=== PATIENT | female | born 1990 | race Caucasian/White ===

== ENCOUNTER 2017-01-01 16:04 | Inpatient (IN) | payer OTHER ==
[~2017-01-01] VITALS: Ht 160 cm; Wt 62.6 kg
[~2017-01-01 16:04] MED LIST: PERC5TAB12 PO
--- NOTE | 2017-01-03 08:42 | MH ---
cc: JULIUS MARTÍNEZ M.D. DATE OF ADMISSION: 01/04/2017 DATE OF 1990 The patient is scheduled for elective repeat section at term, history of marginal placenta previa. HISTORY The patient is a 26-year-old female 2, para 1, previous section in 2010. The patient last menstrual period was April 17, 2016. Her estimated date confinement is January 22, 2017. She is approximately 38 weeks gestation, scheduled for an elective repeat section. complicated by marginal low lying placenta previa. The patient's obstetrical care is notable for the above-stated abnormal placentation, otherwise, an uncomplicated course. Group B strep culture is negative. She is varicella nonimmune. Past medical history The patient denies any systemic or chronic disease. ALLERGIES She states she has no known drug allergies. MEDICATIONS Current medications include vitamins only. FAMILY HISTORY Noncontributory. PAST SURGICAL HISTORY As stated above. Primary section June of 2011 for breech presentation, delivery of viable healthy female , weighing 6 pounds, 10 ounces. PHYSICAL EXAMINATION GENERAL: The patient is well-appearing, well-nourished female in no distress. VITAL SIGNS: Stable. Blood pressures 108/64. She weighs 145 pounds. DIRECTED EXAMINATION: heart tones were the one 140s. HEENT: Shows no adenopathy or thyromegaly. LUNGS: Lungs were clear in all alfredo. CARDIAC: Cardiac is regular rate and rhythm without murmur, rub or gallop. ABDOMEN: Abdomen is gravid, full-term. EXTREMITIES: Symmetrical, full range of motion, 1+ edema. Deep tendon reflexes are normal, 1+. There is no cyanosis, clubbing or edema. NEUROLOGIC: Exam is grossly intact, nonfocal. ASSESSMENT The patient at 38 weeks gestation with a marginal placenta previa for elective repeat section. Julius Martínez MD [facility]/EO /5:20 PM /8:38 AM
[2017-01-04] VITALS (26 sets, daily range): BP systolic 104–123; BP diastolic 57–76; PULSE 18–94; RESP 14–20; TEMP 97.8–98.3; O2SAT 79–99
[2017-01-04] MEDS ORDERED: ceFAZolin 1,000 MG/NS 100 ML IV SCH ×2 (06:00)
[2017-01-04] MEDS ORDERED: LACTATED RINGER'S 1000 ML IV ONE (06:00)
[2017-01-04] MEDS ORDERED: LACTATED RINGER'S 1000 ML IV SCH (06:00)
[2017-01-04] MEDS ORDERED: CITRIC ACID-SODIUM CITRATE LIQ 30 ML UDC PO SCH (06:00)
[2017-01-04] MEDS ORDERED: LIDOCAINE HCL 1% 50 ML VIAL ONE (06:02)
[2017-01-04] MEDS ORDERED: SE-NTAB3 PO (06:12)
[2017-01-04 06:44] LABS: AUTOMATED NEUTROPHIL # 7.6 TH/MM3 (1.8-7.7); BASOPHIL % 0.3 % (0.0-2.0); EOSINOPHIL % 0.3 % (0.0-4.0); HEMATOCRIT 37.3 % (35.0-46.0); HEMO FLAGS DIFF FINAL; LYMPH % 14.5 % (9.0-44.0); LYMPHOCYTE # 1.4 TH/MM3 (1.0-4.8); MEAN CELL VOLUME 89.8 FL (80.0-100.0); MEAN CORPUSCULAR HEMOGLOBIN 30.2 PG (27.0-34.0); MEAN CORPUSCULAR HGB CONC 33.6 % (32.0-36.0); MONO % 6.5 % (0.0-8.0); NEUT % 78.4 % (16.0-70.0); PLATELET COUNT 134 TH/MM3 (150-450); RED BLOOD COUNT 4.16 MIL/MM3 (4.00-5.30); RED CELL DISTRIBUTION WIDTH 13.7 % (11.6-17.2); WHITE BLOOD COUNT 9.7 TH/MM3 (4.0-11.0)
[2017-01-04] MEDS ORDERED: ONDANSETRON HCL 4 MG/2 ML VIAL ONE (07:16)
[2017-01-04] MEDS ORDERED: ACETAMINOPHEN 1000 MG/100 ML VIAL IV ONE ×2 (07:17→13:30)
[2017-01-04] MEDS ORDERED: OXYTOCIN 10 UNIT/ML AMP ONE (07:17)
[2017-01-04] MEDS ORDERED: MORPHINE SULFATE PF 5 MG/10 ML VIAL ONE (07:17)
[2017-01-04 07:18] LABS: BACTERIA, URINE MOD /hpf; BLOOD, URINE NEG (NEG); COMMENT (UR) CULTURE INDICATED; CULTURE IF INDICATED CULTURE INDICATED; GLUCOSE,URINE NEG (NEG); KETONE, URINE NEG (NEG); MUCUS URINE FEW /lpf (OCC); NITRITE,URINE NEG (NEG); PH, URINE 6.5 (5.0-8.5); SQUAMOUS EPITHELIAL CELL URINE 5 /hpf (0-5); URINE COLOR YELLOW (YELLW/STRAW)
--- NOTE | 2017-01-04 08:20 | PD.OB.DELI ---
Procedure Note Section Procedure Performed by Julius Middleton Procedure: Repeat Low Transverse Sec Indication for delivery: Desired elective repeat Informed consent obtained: For anesthesia, For procedure Confirmed correct: Patient, Procedure, Site, Time-out taken Anesthesia: Spinal Medication prior to procedure: As documented in eMAR Monitoring during procedure: Blood pressure monitoring, ekg monitor tech, doppler, Pulse oximetry Urinary catheter: Inserted using sterile technique, To dependent drainage Sterile preparation: Duraprep, In usual fashion Position: Supine with wedge to right side, Supine with safety belt applied Operative Features Skin Incision: Pfannenstiel Uterine Incision: Low transverse w/knife / scissors Membranes Ruptured: Artificially Presentation: Occiput anterior Delivery of : Assisted (kiwi vacuum x 1 pull) : Female One Minute : 9 Five Minute : 9 Weight: 6/11 Status of infant: Viable, Cord blood, Umbilical cord, Nursery present Placenta delivered: Intact Medications: Antibiotics, Oxytocin Estimated blood loss: 600 Procedure tolerated: Well Maternal Condition: Stable Condition: Stable Julius Middleton MD January 04, 2017 08:20
--- NOTE | 2017-01-04 08:23 | HHI.DS ---
Admission Date January 04, 2017 at 05:22 Admitting Diagnosis Diagnosis: : Repeat : Female Pt Condition on Discharge: Good Discharge Disposition: Discharge Home Discharge Instructions Diet Instructions: As Tolerated, No Restrictions Activities You Can Perform: Shower Only-No Bath Activities to Avoid: Prolonged Standing, Strenuous Activity, Shaving, Driving, Sexual Activity Julius Middleton MD January 04, 2017 08:23
[2017-01-04] MEDS ORDERED: SODIUM CHLORIDE 0.9% FLUSH 10 ML FLUSH IV FLUSH PRN (08:30)
[2017-01-04] MEDS ORDERED: SIMETHICONE 80 MG CHEWABLE TAB PO PRN (08:30)
[2017-01-04] MEDS ORDERED: OXYTOCIN 30 UNITS-500ML PREMIX 500 ML IV ONE (08:30)
[2017-01-04] MEDS ORDERED: KETOROLAC TROMETHAMINE 60 MG/2 ML (IM) VIAL IM PRN (09:00)
[2017-01-04] MEDS ORDERED: SODIUM CHLORIDE 0.9% FLUSH 10 ML FLUSH IV FLUSH SCH (09:00)
[2017-01-04] MEDS ORDERED: EPIDURAL-DIPHENHYDRAMINE HCL 50 MG/ML VIAL IV PUSH PRN (10:30)
[2017-01-04] MEDS ORDERED: EPIDURAL-NALOXONE HCL 0.4 MG/ML AMP IV PRN (10:30)
[2017-01-04] MEDS ORDERED: EPIDURAL-DIPHENHYDRAMINE HCL 50 MG CAP PO PRN (10:30)
[2017-01-04] MEDS ORDERED: EPIDURAL-NO SYSTEMIC NARCOTICS PRN (10:30)
[2017-01-04] MEDS ORDERED: EPIDURAL-DO NOT ADMINISTER ANTICOAGULANTS PRN (10:30)
[2017-01-04] MEDS: ONDANSETRON HCL 4 MG/2 ML VIAL IV PUSH PRN ×2 (12:08→17:43)
[2017-01-04] MEDS ORDERED: LACTATED RINGER'S 1000 ML INJ 1,000 ML IV SCH (13:20)
[2017-01-04] MEDS ORDERED: OXYTOCIN 30 UNITS-500ML PREMIX 500 ML IV PRN (18:30)
[2017-01-05 00:22] VITALS: BP 105/70; PULSE 73; RESP 16; TEMP 98.2
[2017-01-05] MEDS: oxyCODONE/ACETAMINOPHEN 5 MG/325 MG TAB PO PRN ×4 (03:00→21:43)
[2017-01-05 05:08] VITALS: BP 106/73; PULSE 74; RESP 14; TEMP 98.2
[2017-01-05 07:50] LABS: AUTOMATED NEUTROPHIL # 11.8 TH/MM3 (1.8-7.7); BASOPHIL % 0.3 % (0.0-2.0); EOSINOPHIL % 0.2 % (0.0-4.0); HEMATOCRIT 38.2 % (35.0-46.0); HEMO FLAGS DIFF FINAL; LYMPH % 10.2 % (9.0-44.0); LYMPHOCYTE # 1.4 TH/MM3 (1.0-4.8); MEAN CELL VOLUME 89.3 FL (80.0-100.0); MEAN CORPUSCULAR HEMOGLOBIN 30.8 PG (27.0-34.0); MEAN CORPUSCULAR HGB CONC 34.5 % (32.0-36.0); MONO % 4.6 % (0.0-8.0); NEUT % 84.7 % (16.0-70.0); PLATELET COUNT 149 TH/MM3 (150-450); RED BLOOD COUNT 4.27 MIL/MM3 (4.00-5.30); RED CELL DISTRIBUTION WIDTH 13.6 % (11.6-17.2); WHITE BLOOD COUNT 13.9 TH/MM3 (4.0-11.0)
[2017-01-05 08:00] VITALS: BP 108/70; PULSE 68; RESP 16; TEMP 97.9
--- NOTE | 2017-01-05 08:41 | HHI.OB ---
Subjective Post Operative Day: 1 Remarks breast feeding. Pain well controlled with motrin. Mod bleeding. Elmer po, passing flatus Objective Vitals/I&O Vital Signs Date Time Temp Pulse Resp B/P Pulse Ox O2 Delivery O2 Flow Rate FiO2 01/05/17 05:08 74 14 106/73 01/05/17 05:08 98.2 01/05/17 00:22 73 105/70 01/05/17 00:22 98.2 16 01/04/17 20:04 98.2 14 01/04/17 20:04 76 104/60 01/04/17 15:20 98.3 72 18 110/68 01/04/17 12:30 16 01/04/17 11:28 18 01/04/17 10:20 98.0 72 16 01/04/17 10:20 110/66 01/04/17 09:45 115/69 01/04/17 09:40 80 01/04/17 09:40 18 98 01/04/17 09:30 20 98 01/04/17 09:30 76 110/65 01/04/17 09:29 97.8 01/04/17 09:15 70 18 113/60 98 01/04/17 09:15 20 01/04/17 09:00 112/57 01/04/17 09:00 79 20 79 01/04/17 09:00 98 01/04/17 08:45 81 01/04/17 08:45 20 18 99 01/04/17 08:44 119/67 Result Diagram: 01/05/17 0719 Objective Remarks GENERAL: Well-nourished, well-developed patient. CARDIOVASCULAR: Regular rate and rhythm without murmurs, gallops, or rubs. RESPIRATORY: Breath sounds equal bilaterally. No accessory muscle use. ABDOMEN/GI: Abdomen soft, non-tender, bowel sounds present. Incision: Dressing in place Fundus: Firm, non-tender at umbilicus. GENITOURINARY: Light to moderate bleeding. EXTREMITIES: No cyanosis or edema, non-tender, without signs of DVT. Medications and IVs Current Medications Medications (Trade) Dose Ordered Sig/Meg Route Start Time Stop Time Status Last Admin Lactated Ringer's 1,000 ml @ 150 mls/hr Q6H40M IV 01/04/17 06:00 01/04/17 07:11 (Lr 1000 ml Inj) 1,000 ml @ 100 mls/hr Q10H IV 01/04/17 13:20 01/05/17 09:19 (NS Flush) 2 ml BID IV FLUSH 01/04/17 09:00 (NS Flush) 2 ml UNSCH PRN IV FLUSH 01/04/17 08:30 (Mylicon Chew) 80 mg QID PRN PO 01/04/17 08:30 (Motrin) 600 mg Q6H PRN PO 01/04/17 08:30 (Toradol Inj) 30 mg Q6H PRN IM 01/04/17 09:00 01/05/17 08:59 (Percocet 5-325 Mg) 1 tab Q4H PRN PO 01/04/17 08:30 01/05/17 03:00 (Percocet 5-325 Mg) 2 tab Q4H PRN PO 01/04/17 08:30 (Jeana-Colace) 2 tab Q12H PRN PO 01/04/17 08:30 (M-M-R Ii Inj) 0.5 ml ONCE ONCE SQ 01/05/17 16:00 01/05/17 16:01 (Boostrix Inj) 0.5 ml ONCE ONCE IM 01/05/17 16:00 01/05/17 16:01 (Zofran Inj) 4 mg Q6H PRN IV PUSH 01/04/17 08:30 01/04/17 17:43 Miscellaneous Information NO SYSTEMIC NARCOTICS TO BE GIVEN FO... UNSCH PRN .XX 01/04/17 10:30 01/05/17 10:29 (Narcan Inj) 0.4 mg UNSCH PRN IV 01/04/17 10:30 01/05/17 10:29 (Benadryl Inj) 25 mg Q6H PRN IV PUSH 01/04/17 10:30 01/05/17 10:29 (Benadryl) 50 mg Q6H PRN PO 01/04/17 10:30 01/05/17 10:29 Miscellaneous Information ALL NURSING DEPARTMENTS UNSCH PRN .XX 01/04/17 10:30 01/05/17 10:29 Assessment/Plan Problem List: (1) care following delivery Assessment and Plan POD 1 - doing well, cont routine supportive care Dispo home pod 2-3, already has rx for pain Jennifer Fields MD January 05, 2017 08:41
[2017-01-05] MEDS: DOCUSATE SODIUM 50 MG/SENNA 8.6 MG TAB PO PRN ×2 (09:26→21:43)
[2017-01-05] MEDS: IBUPROFEN 600 MG TAB PO PRN ×3 (09:26→21:43)
[2017-01-05] MEDS ORDERED: MEASLES, MUMPS, RUBELLA VACCINE 0.5 ML VIAL SQ ONE (16:00)
[2017-01-05] MEDS ORDERED: DIPHTH/TETANUS/ACEL PERTUSSIS (BOOSTER) 0.5 ML VIAL/PFS IM ONE (16:00)
--- NOTE | 2017-01-05 16:04 | MP ---
cc: JULIUS MARTÍNEZ M.D. DATE OF SURGERY: 01/04/2017. PREOPERATIVE DIAGNOSIS: 1. Term anterior . 2. History of previous section and marginal low lying placenta previa POSTOPERATIVE DIAGNOSIS: 1. Term anterior . 2. History of previous section and marginal low lying placenta previa OPERATIVE PROCEDURE PERFORMED: Repeat low transverse section and delivery of a viable female infant. SURGEON: Julius Martínez MD. ANESTHESIA: Spinal ESTIMATED BLOOD LOSS 600 mL. DRAINS: Wyatt to gravity. OPERATIVE FINDINGS: Female weighing 6 pounds 11 ounces with Apgars of 9 at one minute and 9 at five. Placenta was low lying. There was no complication of removing the placenta or excessive bleeding. DESCRIPTION OF THE PROCEDURE IN DETAIL: The patient was taken to the operative suite in stable condition having previously received Ancef 2 grams. She underwent spinal anesthetic by anesthesia without complication and good result. She was positioned on the operative table and prepped and draped. The Wyatt was inserted previously by sterile technique. She had sequentials placed on the lower extremities for VTE prophylaxis. When she was prepped and draped, a time-out was conducted and agreed upon by all present in the room. The patient again was tested and she had excellent pain control. The Pfannenstiel incision was utilized from the previous using a #10 blade through the skin and subcutaneous layer, which was densely scarred identifying the fascia and then using a sharp scalpel technique to open the fascia laterally. The muscle bellies were identified and midline. The peritoneum was identified and opened sharply. The bladder blade was placed over the pubic symphysis. The lower uterine segment was examined. The peritoneum was opened and then the incision was made in the lower uterine segment with clear fluid. The was delivered with the aid of a vacuum. A kiwi cup was used with just one pole with an atraumatic delivery. Nuchal cord identified x1 and it was easily reduced. The infant was delivered in toto with good tone and cry and then the cord was doubly clamped and cut. the was taken to the isolette by the nursery nurse. Cord samples were obtained for typing. Placenta was removed intact with trailing membranes and no complication was incurred. The uterus was explored. No active bleeding. Hemostasis was confirmed. The uterus was closed with a double layer first was a running locking suture followed by a second imbricating suture and the same suture of 30 Monocryl. The pelvis was irrigated and examined. No active bleeding or abnormality was identified. Full count was made and was correct. The peritoneum was then closed with a running suture of #2 Monocryl. The muscle layer was reapproximated with a loose interrupted mattress suture of #2 Monocryl and then the fascia was closed with a #0 Vicryl in a simple running fashion. The subcutaneous layer was elevated and the Bovie cutting setting was used to elevate the contracted skin edge from the subcutaneous space to allow closure. Once this was accomplished, hemostasis again was confirmed cauterizing any small active bleeding. 2-0 Vicryl is used to reapproximate the space and then km were used to close the skin with good result. At the completion of the case, a dressing was applied. The final count was correct. The patient was stable. The infant was doing well in the regular nursery. MD SHRUTHI Messer/REGAN /8:28 AM /3:55 PM
[2017-01-05 19:39] VITALS: BP 114/72; PULSE 70; RESP 18; TEMP 98.2
[2017-01-06] MEDS: oxyCODONE/ACETAMINOPHEN 5 MG/325 MG TAB PO PRN ×2 (04:03→11:21)
[2017-01-06] MEDS: IBUPROFEN 600 MG TAB PO PRN ×2 (04:04→11:21)
[2017-01-06 08:15] VITALS: BP 109/74; PULSE 67; RESP 18; TEMP 98.2
--- NOTE | 2017-01-06 10:00 | HHI.OB ---
Subjective Post Operative Day: 2 Remarks doing well, desires to go home Objective Vitals/I&O Vital Signs Date Time Temp Pulse Resp B/P Pulse Ox O2 Delivery O2 Flow Rate FiO2 01/06/17 08:15 98.2 01/06/17 08:15 67 18 109/74 01/05/17 19:39 70 114/72 01/05/17 19:39 98.2 18 Result Diagram: 01/05/17 0719 Objective Remarks GENERAL: Well-nourished, well-developed patient. CARDIOVASCULAR: Regular rate and rhythm without murmurs, gallops, or rubs. RESPIRATORY: Breath sounds equal bilaterally. No accessory muscle use. ABDOMEN/GI: Abdomen soft, non-tender, bowel sounds present. Incision: c/d/i km in place Fundus: Firm, non-tender at umbilicus. GENITOURINARY: Light to moderate bleeding. EXTREMITIES: No cyanosis or edema, non-tender, without signs of DVT. Medications and IVs Current Medications Medications (Trade) Dose Ordered Sig/Meg Route Start Time Stop Time Status Last Admin (Lr 1000 ml Inj) 1,000 ml @ 150 mls/hr Q6H40M IV 01/04/17 06:00 01/04/17 07:11 (NS Flush) 2 ml BID IV FLUSH 01/04/17 09:00 (NS Flush) 2 ml UNSCH PRN IV FLUSH 01/04/17 08:30 (Mylicon Chew) 80 mg QID PRN PO 01/04/17 08:30 (Motrin) 600 mg Q6H PRN PO 01/04/17 08:30 01/06/17 04:04 (Percocet 5-325 Mg) 1 tab Q4H PRN PO 01/04/17 08:30 01/05/17 21:43 (Percocet 5-325 Mg) 2 tab Q4H PRN PO 01/04/17 08:30 01/06/17 04:03 (Jeana-Colace) 2 tab Q12H PRN PO 01/04/17 08:30 01/05/17 21:43 (Zofran Inj) 4 mg Q6H PRN IV PUSH 01/04/17 08:30 01/04/17 17:43 Assessment/Plan Problem List: (1) care following delivery Assessment and Plan POD 2 - doing well, cont routine supportive care Dispo home pod 2, already has rx for pain f/u 1-2 d to remove km in office Jennifer Fields MD January 06, 2017 10:00
[2017-01-06] MEDS ORDERED: IBUP-232 PO (11:33)
== END 2017-01-06 12:59 | disposition home or self-care (01) | DRG 766 ==
LOC: H2EB 01-04 05:22 → H1EA 01-04 10:00
PROVIDERS: ADMIT Obstetrics & Gynecology; ATTEND Obstetrics & Gynecology
PROC: 10D00Z1 Extraction of Products of Conception, Low, Open Approach (ICD-10-PCS; principal; 2017-01-04)
DX: O44.20 Partial placenta previa NOS or without hemorrhage, unspecified trimester (principal); O34.211 Maternal care for low transverse scar from previous cesarean delivery; Z37.0 Single live birth; Z3A.38 38 weeks gestation of pregnancy
CPT/HCPCS: 59025; 81001; 85025; 86850; 86900; 86901; 87086; 90715; J0131; J0690; J2274; J2405; J2590; J7120